=== PATIENT | male | born 1960 | race Caucasian/White ===

== ENCOUNTER 2018-12-04 19:02 | Inpatient (IN) | payer BC, OTHER ==
[~2018-12-04] VITALS: Ht 177.8 cm; Wt 98.5 kg
--- NOTE | 2018-12-04 19:35 | NUR ---
PATIENT WAS MSE BY DR PARRISH.
[2018-12-04 19:57] LABS: BASOPHILS # (AUTO) 0.1 K/uL (0.0-8.0); EOSINOPHILS # (AUTO) 0.1 K/uL (0.0-0.7); EOSINOPHILS % (AUTO) 1.4 % (0.0-7.0); HEMATOCRIT 43.9 % (36.7-47.1); LYMPHOCYTES # (AUTO) 1.8 K/uL (20.0-40.0); LYMPHOCYTES % (AUTO) 20.7 % (20.5-51.5); MEAN CORPUSCULAR HEMOGLOBIN 30.8 uug (23.8-33.4); MEAN CORPUSCULAR HGB CONC 34 g/dL (32.5-36.3); MEAN CORPUSCULAR VOLUME 90.2 fL (73.0-96.2); MONOCYTES # (AUTO) 0.8 K/uL (2.0-10.0); MONOCYTES % (AUTO) 8.5 % (0.0-11.0); NEUTROPHILS # (AUTO) 6.1 K/uL (1.8-8.9); NEUTROPHILS % (AUTO) 68.4 % (38.5-71.5); PLATELET COUNT (AUTO) 270 K/uL (152-348); RED BLOOD CELL COUNT(AUTO) 4.86 MIL/uL (4.06-5.63); WHITE BLOOD COUNT (AUTO) 8.9 K/uL (3.6-10.2)
--- NOTE | 2018-12-04 19:58 | NUR ---
PATIENT WAS BACK FROM CT. A & O X3
[2018-12-04 20:01] LABS: CARBON DIOXIDE 26 mmol/L (21-32); CHLORIDE 106 mmol/L (98-107); CREATININE 0.7 mg/dL (0.6-1.3); GLUCOSE 91 mg/dL (74-106); POTASSIUM 3.6 mmol/L (3.5-5.1); UREA NITROGEN, BLOOD 15 mg/dL (7-18)
[2018-12-04 20:11] LABS: ETHANOL < 3 MG/DL (0-0)
[2018-12-04 20:15] LABS: ALANINE AMINOTRANSFERASE 28 U/L (16-63); ALKALINE PHOSPHATASE 98 U/L (50-136); ASPARTATE AMINOTRANSFERASE 19 U/L (15-37); BILIRUBIN,DIRECT 0.1 mg/dL (0.0-0.2); BILIRUBIN,TOTAL 0.6 mg/dL (0.2-1.0); CREATINE KINASE, TOTAL 281 U/L (39-308); TOTAL PROTEIN, SERUM 6.6 g/dL (6.4-8.2)
[2018-12-04 20:16] LABS: ACETAMINOPHEN < 2.0 ug/mL (10-30)
[2018-12-04 20:29] LABS: THYROID STIMULATING HORMONE 2.261 mIU/mL (0.358-3.740)
--- NOTE | 2018-12-04 20:34 | NUR ---
[facility] WAS CALLED PER DR PARRISH PATIENT MEDICALLY CLEARED.
[2018-12-04 20:59] LABS: *BILIRUBIN,URIN NEGATIVE (NEGATIVE); *BLOOD, URINE 1+ (NEGATIVE); *CLARITY,URINE CLEAR (CLEAR); *COLOR,URINE YELLOW (YELLOW); *KETONES,URINE TRACE (NEGATIVE); *UROBILINOGEN,URINE 0.2 E.U./dl (NORMAL); LEUKOCYTE ESTERASE ,URINE NEGATIVE (NEGATIVE); NITRITE, URINE NEGATIVE (NEGATIVE); UGLUCOSE NEGATIVE (NEGATIVE)
[2018-12-04 21:06] LABS: MUCUS,URINE MODERATE /LPF (0-FEW); SPERM,URINE FEW /HPF (NONE SEEN); WBC,URINE 0-3 /HPF (0-3)
[2018-12-04 21:10] LABS: *AMPHETAMINE, URINE NEGATIVE (NEGATIVE); *BARBITURATE, URINE NEGATIVE (NEGATIVE); *CANNABINOID, URINE NEGATIVE (NEGATIVE); *COCCAINE, URINE NEGATIVE (NEGATIVE); *OPIATE, URINE NEGATIVE (NEGATIVE); *PHENCYCLIDINE SCREEN,URINE NEGATIVE (NEGATIVE)
--- NOTE | 2018-12-04 21:59 | NUR ---
Patient is resting comfortably in bed with eyes closed
--- NOTE | 2018-12-04 22:51 | NUR ---
Spoke with Iram Barragan RN [facility], eta 30 min.
--- NOTE | 2018-12-04 23:30 | NUR ---
PATIENT WAS SEEN AND EVALUATED BY [facility] CRISIS TEAM.
[2018-12-05] MEDS ORDERED: ESCI5TAB PO (00:13)
[2018-12-05] MEDS ORDERED: LOSA25TA27 PO (00:13)
[2018-12-05] MEDS ORDERED: HYDROCODONE/APAP 5-325MG TABLET PO PRN (00:15)
[2018-12-05] MEDS ORDERED: ONDANSETRON 4 MG/2 ML VIAL IV PRN (00:15)
[2018-12-05] MEDS ORDERED: Z GUARD REMEDY PASTE 57 GM TUBE TOP PRN (00:15)
[2018-12-05] MEDS ORDERED: MAGNESIUM HYDROXIDE 30 ML LIQUID UDC PO PRN (00:15)
[2018-12-05] MEDS ORDERED: ACETAMINOPHEN 325 MG TABLET PO PRN (00:15)
--- NOTE | 2018-12-05 00:50 | NUR ---
Pt. admitted to [facility] , under care of [facility] Belongs List completed
--- NOTE | 2018-12-05 01:25 | NUR ---
Admitted 58y/o Male under the care of Dexter BURNS. Dx: Acute metabolic encephalopathy. Patient is A&Ox2, noted w/ episodes of forgetfulness. Oriented patient to his room and w/ the use of call light. Admission protocol initiated. Safety measures observed. Call light in reach
[2018-12-05 03:04] VITALS: BP 141/72
[2018-12-05 05:01] VITALS: BP 132/84
[2018-12-05 06:40] LABS: BASOPHILS # (AUTO) 0.1 K/uL (0.0-8.0); EOSINOPHILS # (AUTO) 0.2 K/uL (0.0-0.7); HEMATOCRIT 45.9 % (36.7-47.1); HEMOGLOBIN 15.7 g/dL (12.5-16.3); LYMPHOCYTES # (AUTO) 1.9 K/uL (20.0-40.0); MEAN CORPUSCULAR HEMOGLOBIN 30.6 uug (23.8-33.4); MEAN CORPUSCULAR HGB CONC 34 g/dL (32.5-36.3); MEAN CORPUSCULAR VOLUME 89.3 fL (73.0-96.2); MONOCYTES # (AUTO) 0.7 K/uL (2.0-10.0); MONOCYTES % (AUTO) 9.9 % (0.0-11.0); NEUTROPHILS # (AUTO) 4.1 K/uL (1.8-8.9); NEUTROPHILS % (AUTO) 59.1 % (38.5-71.5); PLATELET COUNT (AUTO) 267 K/uL (152-348); RED BLOOD CELL COUNT(AUTO) 5.14 MIL/uL (4.06-5.63)
--- NOTE | 2018-12-05 06:44 | NUR ---
Patient slept well. No complaints of pain at this time. All needs attended. Will endorse accordingly
[2018-12-05 07:02] LABS: CREATININE 0.9 mg/dL (0.6-1.3); MAGNESIUM 1.7 mg/dL (1.8-2.4); PHOSPHOROUS 3.8 mg/dL (2.5-4.9); POTASSIUM 3.7 mmol/L (3.5-5.1)
[2018-12-05] MEDS: LOSARTAN POTASSIUM 25 MG TABLET PO SCH (08:40)
[2018-12-05] MEDS: MAGNESIUM SULFATE/D5W 100 ML IV SCH ×2 (10:37→11:35)
[2018-12-05 11:23] VITALS: BP 137/84
[2018-12-05 15:42] VITALS: BP 126/84
[2018-12-05 15:45] VITALS: BP 126/84
--- NOTE | 2018-12-05 17:05 | NUR ---
Patient alert and oriented, ambulatory and steady. No distress noted or complaints of pain. IV placed in left hand for magnesium replacement today. Psych consult placed today per , made aware. Patient calm and cooperative with periods of agitation, able to reorient and calm. End of shift chart check done, will endorse care to oncoming shift.
--- NOTE | 2018-12-05 20:00 | NUR ---
Pt a/o x 2-3, with periods of forgetfulness. pt is sitting on bed in room calmly. No signs of distress. Introduced myself to pt, call light within reach, bed in low and in locked postion. IV flushed with NS, patent and no signs of infiltration. Will continue to monitor pt throughout shift.
[2018-12-05 20:35] VITALS: BP 128/90
--- NOTE | 2018-12-06 | NUR ---
pt is resting in bed, will continue to monitor.
[2018-12-06 04:59] VITALS: BP 135/85
[2018-12-06 06:02] LABS: BASOPHILS % (AUTO) 0.6 % (0.0-2.0); EOSINOPHILS # (AUTO) 0.2 K/uL (0.0-0.7); EOSINOPHILS % (AUTO) 2.8 % (0.0-7.0); HEMATOCRIT 45.3 % (36.7-47.1); HEMOGLOBIN 15.3 g/dL (12.5-16.3); LYMPHOCYTES # (AUTO) 1.8 K/uL (20.0-40.0); LYMPHOCYTES % (AUTO) 27.3 % (20.5-51.5); MEAN CORPUSCULAR HEMOGLOBIN 30.6 uug (23.8-33.4); MEAN CORPUSCULAR HGB CONC 34 g/dL (32.5-36.3); MEAN CORPUSCULAR VOLUME 90.5 fL (73.0-96.2); MONOCYTES # (AUTO) 0.5 K/uL (2.0-10.0); MONOCYTES % (AUTO) 8.3 % (0.0-11.0); PLATELET COUNT (AUTO) 257 K/uL (152-348); RED BLOOD CELL COUNT(AUTO) 5.01 MIL/uL (4.06-5.63); WHITE BLOOD COUNT (AUTO) 6.6 K/uL (3.6-10.2)
[2018-12-06 06:09] LABS: CREATININE 0.8 mg/dL (0.6-1.3); MAGNESIUM 1.8 mg/dL (1.8-2.4); PHOSPHOROUS 3.5 mg/dL (2.5-4.9); POTASSIUM 3.8 mmol/L (3.5-5.1)
--- NOTE | 2018-12-06 06:44 | NUR ---
Pt is resting comfortably in bed. Bed in low position, call light within reach. Pt had to be redirected throughout shift. Will endorse to day shift nurse.
--- NOTE | 2018-12-06 08:00 | NUR ---
No Suicidal ideation noted. pt denies any suicidal thoughts. Pt concerned about his cats well being. "My cat is going to because my is not going to take care of my cat" therapeutic communication effective.
[2018-12-06] MEDS: LOSARTAN POTASSIUM 25 MG TABLET PO SCH (08:26)
--- NOTE | 2018-12-06 10:00 | NUR ---
Pt pacing around hallway and very paranoid about "his cat not being taken care off by his (Yvrose)". Pt was crying about his cat. Comforted patient effective.
[2018-12-06 11:19] VITALS: BP 126/91
--- NOTE | 2018-12-06 12:00 | NUR ---
Dr Ballesteros psychiatrist here to evaluate patient. Notified of patients behavior.
[2018-12-06 15:24] VITALS: BP 126/96
--- NOTE | 2018-12-06 18:30 | NUR ---
Pt is in no acute distress. Call light is within reach pt more calm and cooperative.
--- NOTE | 2018-12-06 19:45 | NUR ---
PATIENT ALERT ORIENTED, NO SOB NO CHEST PAIN, PATIENT HAS NO COMPLAIN OF PAIN NOR DISCOMFORT, PATIENT HAS EPISODE OF PACING ON THE HALLWAYS, BUT ABLE TO REDIRECT BEHAVIOR, CONTINENT OF BOWEL AND BLADDER, OFFER FOOD AND FLUIDS. CONT TO MONITOR.
[2018-12-06 20:11] VITALS: BP 119/80
[2018-12-07 05:10] VITALS: BP 131/72
--- NOTE | 2018-12-07 05:17 | NUR ---
PATIENT ALERT ORIENTED NO SOB NO CHEST PAIN. PATIENT COMPLAIN OF LEFT WRIST PROBABLY DUE POSITIONING DURING SLEEPING, APPLIED COLD COMPRESS. PATIENT QUIET COOPERATIVE WITH CARE, CONT TO MONITOR.
--- NOTE | 2018-12-07 08:00 | NUR ---
received pt resting in bed. pt alert and oriented x3. no signs of sob. no signs of acute distress noted. bed locked and in low position. pt denies pain at this time. pt denies any suicidal ideation. pt denies any suicidal intent at this time. will continue to monitor.
[2018-12-07] MEDS: LOSARTAN POTASSIUM 25 MG TABLET PO SCH (08:36)
[2018-12-07] MEDS ORDERED: ESCITALOPRAM OXALATE 10 MG TABLET PO SCH ×2 (09:00)
--- NOTE | 2018-12-07 10:15 | NUR ---
discharge order received. pt alert and oriented x3. no signs of sob. no signs of acute distress noted. bed locked and in low position. pt denies pain at this time. pt denies any suicidal ideation. pt denies any suicidal intent at this time. will continue to monitor.
[2018-12-07 11:51] VITALS: BP 136/89
--- NOTE | 2018-12-07 14:16 | NUR ---
PT HAS BEEN DISCHARGED. NO SIGNS OF ACUTE DISTRESS OR SOB NOTED. PT SOMEWHAT CONFUSED. STABLE FOR DISCHARGE PER MD. [facility] USED FOR HOME TRANSPORT. DISCHARGE INSTRUCTIONS GIVEN TO PT AND HANDED TO TRANSPORT SERVICE FOR TO REVIEW. IV REMOVED INTACT. BELONGINGS RETURNED. PT ESCORTED VIA WHEELCHAIR BY STAFF.
== END 2018-12-07 14:20 | disposition home or self-care (01) | DRG 640 ==
LOC: ER 19:04 → EDBD 19:04 → MEDSURG3 12-05 00:10
PROVIDERS: ADMIT Nurse Practitioner Acute Care; ATTEND Internal Medicine
DX: E86.0 Dehydration (principal); G93.41 Metabolic encephalopathy; R47.01 Aphasia; E83.42 Hypomagnesemia; F10.10 Alcohol abuse, uncomplicated; Y90.0 Blood alcohol level of less than 20 mg/100 ml; F32.9 Major depressive disorder, single episode, unspecified; F03.90 Unspecified dementia, unspecified severity, without behavioral disturbance, psychotic disturbance, mood disturbance, and anxiety; I10 Essential (primary) hypertension
CPT/HCPCS: 36415; 70030-TC; 70450; 71045; 80307; 83605; 83735; 84100; 84443; 85025; 87040; 87086; 93005; A4663; G0378; G0480; G0480-TC; J2405; J3475